=== PATIENT | male | born 1960 | race Two or more races ===

== ENCOUNTER 2017-10-18 19:08 | Inpatient (IN) | payer MEDICARE, MEDICAID ==
[~2017-10-18] VITALS: Ht 175.3 cm; Wt 71.1 kg
[2017-10-18 19:57] LABS: ALBUMIN 4.7 g/dL (3.4-5.0); ANION GAP 12 mmol/L (5-15); CALCIUM 9.2 mg/dL (8.5-10.1); CHLORIDE 97 mmol/L (98-107)
[2017-10-18 19:58] LABS: MD YES; MEAN CORPUSCULAR HEMOGLOBIN 35.7 pg (27.5-34.5); MEAN CORPUSCULAR HGB CONC 34.9 g/dL (33.2-36.2); MEAN CORPUSCULAR VOLUME 102.2 fL (81-97); PLATELET COUNT 198 x10^3/uL (130-400); RED BLOOD COUNT 3.96 x10^6/uL (4.38-5.82); RED CELL DISTRIBUTION WIDTH 13.5 % (9.4-14.8)
[2017-10-18 19:59] LABS: INTERNATIONAL NORMALIZED RATIO 1.03 (0.93-1.1); PROTHROMBIN TIME 10.7 Seconds (9.6-11.5)
[2017-10-18 20:05] LABS: ALANINE AMINOTRANSFERASE 36 U/L (12-78); ALKALINE PHOSPHATASE 97 U/L (45-117); BILIRUBIN,TOTAL 0.6 mg/dL (0.2-1.0); CREATININE 1.94 mg/dL (0.7-1.3); TOTAL PROTEIN 8.7 g/dL (6.4-8.2); TROPONIN I 0.024 ng/mL (0.000-0.045)
[2017-10-18 20:17] LABS: BASOS#(MANUAL) 0.05 x10^3/uL (0-0.1); BASOS% (MANUAL) 1 % (0-1); EOS#(MANUAL) 0.05 x10^3/uL (0.0-0.4); EOS% (MANUAL) 1 % (1-7); LYMPHS% (MANUAL) 47 % (22-44); MONOS#(MANUAL) 0.36 x10^3/uL (0.3-2.7); MONOS% (MANUAL) 7 % (2-9); SEG#(MANUAL) 2.24 x10^3/uL (1.8-6.8); SEGS% (MANUAL) 44 % (42-75)
[2017-10-18 20:19] LABS: <PLATELET ESTIMATE> ADEQUATE; <PLT MORPHOLOGY> NORMAL PLT MORPH
[2017-10-18] MEDS ORDERED: METOCLOPRAMIDE 5 MG/ML, 2ML ONE (20:55)
[2017-10-18 20:58] LABS: MICROSCOPIC AUTO
[2017-10-18 20:59] LABS: CULTURE INDICATED? NO
[2017-10-18] MEDS ORDERED: METOCLOPRAMIDE 5 MG/ML, 2ML IVPush ONE (21:00)
[2017-10-18] MEDS ORDERED: DIPHENHYDRAMINE 50 MG/ML, 1ML IVPush ONE (21:00)
[2017-10-18] MEDS ORDERED: SODIUM CHLORIDE 0.9% 1,000ML IVBOLUS ONE (21:00)
[2017-10-18] MEDS ORDERED: ALBU5SOL6 INH (21:32)
[2017-10-18 21:57] VITALS: BP 131/88
[2017-10-18] MEDS ORDERED: OXYcodone IR 5MG TABLET PO PRN (22:30)
[2017-10-18] MEDS ORDERED: LABETALOL 5MG/ML, 20ML IVPush PRN (22:30)
[2017-10-18] MEDS ORDERED: ACETAMINOPHEN 325 MG TABLET PO PRN (22:30)
[2017-10-18] MEDS ORDERED: BISACODYL 10 MG SUPP PR PRN (22:30)
[2017-10-18] MEDS: ALBUTEROL/IPRATROPIUM 2.5MG/0.5MG, 3 ML NPPB SCH (22:30)
[2017-10-18] MEDS ORDERED: DOCUSATE 100 MG CAPSULE PO PRN (22:30)
[2017-10-18] MEDS ORDERED: POLYETHYLENE GLYCOL 17 GM PACKET PO PRN (22:30)
[2017-10-18] MEDS ORDERED: hydrALAzine 20 MG/ML, 1ML IVPush PRN (22:30)
[2017-10-18] MEDS ORDERED: morphine SULFATE 10 MG/ML, 1ML IVPush PRN (22:30)
[2017-10-18] MEDS ORDERED: ONDANSETRON 2MG/ML, 2ML IVPush PRN (22:30)
[2017-10-18] MEDS: D5%-0.9% NACL+KCL 20MEQ 1,000 ML IV SCH (23:00)
[2017-10-18] MEDS: HEPARIN 5,000 UNITS/ML, 1ML SQ SCH (23:00)
[2017-10-18 23:07] LABS: TOTAL IRON BINDING CAPACITY 368 mcg/dL (250-450)
[2017-10-18 23:13] LABS: HEMOGLOBIN A1C 5.5 % (4.2-6.3)
[2017-10-18 23:31] LABS: % IRON SATURATION 34 % (20-55); C-REACTIVE PROTEIN, QUANT < 0.02 mg/dL (0.02-0.49); IRON LEVEL 126 mcg/dL (65-175)
[2017-10-18 23:33] LABS: FREE T4 (FREE THYROXINE) 1.05 ng/dL (0.76-1.46); PSA SCREEN 3.32 ng/mL (0.00-4.00); TRANSFERRIN 326 mg/dL (200-360)
[2017-10-19 00:31] LABS: CHOLESTEROL, TOTAL 238 mg/dL (140-239)
[2017-10-19 00:44] LABS: CHOL/HDL RATIO 1.5; HDL CHOL % 69 % (26-37); HDL CHOLESTEROL (DIRECT) 164 mg/dL (40-60); LDL CHOLESTEROL,CALCULATED 58 mg/dL (54-169); LDL/HDL RATIO 0.4 (0.5-3.0); TRIGLYCERIDES 80 mg/dL (50-200); VLDL CHOLESTEROL 16 mg/dL (0-25)
[2017-10-19 01:55] VITALS: BP 112/75
[2017-10-19 05:10] LABS: HCT (SEDRATE) 33.3 % (39.2-51.8); MEAN CORPUSCULAR HEMOGLOBIN 35.5 pg (27.5-34.5); MEAN CORPUSCULAR HGB CONC 34.8 g/dL (33.2-36.2); MEAN CORPUSCULAR VOLUME 102.1 fL (81-97); MEAN PLATELET VOLUME 7.6 fL (7.4-10.4); PLATELET COUNT 170 x10^3/uL (130-400); RED BLOOD COUNT 3.26 x10^6/uL (4.38-5.82); RED CELL DISTRIBUTION WIDTH 13.6 % (9.4-14.8)
[2017-10-19 05:30] LABS: MD YES
[2017-10-19 05:33] LABS: EOS#(MANUAL) 0.08 x10^3/uL (0.0-0.4); EOS% (MANUAL) 2 % (1-7); LYMPH#(MANUAL) 2.17 x10^3/uL (1-3.4); LYMPHS% (MANUAL) 53 % (22-44); MONOS#(MANUAL) 0.21 x10^3/uL (0.3-2.7); MONOS% (MANUAL) 5 % (2-9); SEG#(MANUAL) 1.64 x10^3/uL (1.8-6.8); SEGS% (MANUAL) 40 % (42-75)
[2017-10-19 05:34] LABS: <PLATELET ESTIMATE> ADEQUATE; <PLT MORPHOLOGY> NORMAL PLT MORPH; ANISOCYTOSIS 1+; OVALOCYTES 1+
[2017-10-19] MEDS: ALBUTEROL/IPRATROPIUM 2.5MG/0.5MG, 3 ML NPPB SCH ×5 (06:00→19:30)
[2017-10-19 07:36] VITALS: BP 131/78
[2017-10-19 07:41] LABS: ALANINE AMINOTRANSFERASE 29 U/L (12-78); ALBUMIN 3.6 g/dL (3.4-5.0); ANION GAP 8 mmol/L (5-15); CALCIUM 8.2 mg/dL (8.5-10.1); CHLORIDE 108 mmol/L (98-107); CREATININE 1.46 mg/dL (0.7-1.3)
[2017-10-19 07:43] LABS: ALKALINE PHOSPHATASE 76 U/L (45-117); BILIRUBIN,TOTAL 0.6 mg/dL (0.2-1.0)
[2017-10-19] MEDS: D5%-0.9% NACL+KCL 20MEQ 1,000 ML IV SCH ×2 (08:29→19:48)
[2017-10-19] MEDS: HEPARIN 5,000 UNITS/ML, 1ML SQ SCH ×3 (08:30→23:59)
[2017-10-19] MEDS: FLUTICASONE/VILANTEROL 200-25MCG/INH INH SCH (09:57)
[2017-10-19] MEDS: ONDANSETRON ODT 4 MG PO PRN (09:57)
[2017-10-19] MEDS ORDERED: ERGOCALCIFEROL 50,000 UNIT CAPSULE PO SCH (11:30)
[2017-10-19] MEDS: methylPREDNISolone SOD SUCC 40 MG/ML IV SCH ×2 (12:04→18:50)
[2017-10-19 13:56] VITALS: BP 136/69
[2017-10-19] MEDS ORDERED: LORazepam 1MG TABLET PO PRN ×4 (16:30)
[2017-10-19] MEDS ORDERED: LORazepam 2 MG/ML, 1ML IV PRN ×5 (16:30)
[2017-10-19] MEDS ORDERED: LORazepam 0.5MG TABLET PO PRN (16:30)
[2017-10-19 19:37] VITALS: BP 124/73
[2017-10-20 01:30] VITALS: BP 125/79
[2017-10-20 05:05] LABS: MEAN CORPUSCULAR HGB CONC 34.2 g/dL (33.2-36.2); MEAN CORPUSCULAR VOLUME 102.4 fL (81-97); MEAN PLATELET VOLUME 8.1 fL (7.4-10.4); PLATELET COUNT 169 x10^3/uL (130-400); RED BLOOD COUNT 3.42 x10^6/uL (4.38-5.82); RED CELL DISTRIBUTION WIDTH 13.1 % (9.4-14.8)
[2017-10-20 05:10] LABS: ALBUMIN 3.8 g/dL (3.4-5.0); CALCIUM 9.1 mg/dL (8.5-10.1); CHLORIDE 106 mmol/L (98-107)
[2017-10-20 05:14] LABS: ANION GAP 7 mmol/L (5-15)
[2017-10-20 05:15] LABS: ALANINE AMINOTRANSFERASE 27 U/L (12-78); ALKALINE PHOSPHATASE 75 U/L (45-117); BILIRUBIN,TOTAL 0.7 mg/dL (0.2-1.0); TOTAL PROTEIN 7.6 g/dL (6.4-8.2)
[2017-10-20] MEDS: methylPREDNISolone SOD SUCC 40 MG/ML IV SCH ×4 (05:23→17:41)
[2017-10-20] MEDS: D5%-0.9% NACL+KCL 20MEQ 1,000 ML IV SCH ×2 (05:25→18:07)
[2017-10-20 05:42] LABS: MD YES
[2017-10-20 05:44] LABS: LYMPH#(MANUAL) 0.33 x10^3/uL (1-3.4); LYMPHS% (MANUAL) 6 % (22-44); MONOS#(MANUAL) 0.06 x10^3/uL (0.3-2.7); MONOS% (MANUAL) 1 % (2-9); SEG#(MANUAL) 5.12 x10^3/uL (1.8-6.8); SEGS% (MANUAL) 93 % (42-75)
[2017-10-20 05:45] LABS: <PLATELET ESTIMATE> ADEQUATE; <PLT MORPHOLOGY> NORMAL PLT MORPH
[2017-10-20] MEDS: ALBUTEROL/IPRATROPIUM 2.5MG/0.5MG, 3 ML NPPB SCH ×4 (06:30→19:51)
[2017-10-20 08:00] VITALS: BP 132/77
[2017-10-20 08:17] LABS: OCCULT BLOOD NEGATIVE (NEGATIVE)
[2017-10-20 09:03] LABS: CRYPTOSPORIDIUM ANTIGEN Negative (Negative)
[2017-10-20] MEDS: FLUTICASONE/VILANTEROL 200-25MCG/INH INH SCH (09:10)
[2017-10-20] MEDS: HEPARIN 5,000 UNITS/ML, 1ML SQ SCH ×2 (09:10→17:41)
[2017-10-20 09:12] LABS: STOOL FOR LEUKOCYTES NONE SEEN (NEGATIVE)
[2017-10-20 12:45] VITALS: BP 154/84
[2017-10-20] MEDS ORDERED: LORazepam 2 MG/ML, 1ML ONE (13:31)
[2017-10-20] MEDS: ONDANSETRON ODT 4 MG PO PRN ×2 (13:33→17:41)
[2017-10-20] MEDS: LORazepam 2 MG/ML, 1ML IVPush PRN ×2 (13:34→19:20)
[2017-10-20 18:55] VITALS: BP 148/88
[2017-10-20] MEDS: PROMETHAZINE 25 MG/ML, 1ML IM PRN (19:25)
[2017-10-21] MEDS: HEPARIN 5,000 UNITS/ML, 1ML SQ SCH ×3 (00:28→08:32)
[2017-10-21] MEDS: methylPREDNISolone SOD SUCC 40 MG/ML IV SCH ×3 (00:28→12:46)
[2017-10-21 01:26] VITALS: BP 150/86
[2017-10-21] MEDS: D5%-0.9% NACL+KCL 20MEQ 1,000 ML IV SCH ×2 (01:35→08:32)
[2017-10-21] MEDS: PROMETHAZINE 25 MG/ML, 1ML IM PRN (05:14)
[2017-10-21] MEDS: ALBUTEROL/IPRATROPIUM 2.5MG/0.5MG, 3 ML NPPB SCH ×3 (06:55→14:15)
[2017-10-21] MEDS: FLUTICASONE/VILANTEROL 200-25MCG/INH INH SCH (08:32)
[2017-10-21 08:41] VITALS: BP 152/89
[2017-10-21] MEDS: ONDANSETRON ODT 4 MG PO PRN (12:46)
[2017-10-21 13:41] VITALS: BP 146/79
[2017-10-21] MEDS ORDERED: DOCU-131 PO (14:35)
[2017-10-21] MEDS ORDERED: IPRA3AMP30 NPPB (14:35)
[2017-10-21] MEDS ORDERED: FLUT1BLS INH (14:35)
[2017-10-21] MEDS ORDERED: PRED5TAB PO (14:35)
[2017-10-21] MEDS ORDERED: ERGO500017 PO (14:35)
[2017-10-21] MEDS ORDERED: ONDA4TAB7 PO (14:35)
[2017-10-21] MEDS ORDERED: CALCIUM CARBONATE 500 MG TAB.CHEW PO PRN (15:00)
== END 2017-10-21 15:52 | disposition home or self-care (01) | DRG 438 ==
LOC: ED 20:43 → EDIP 21:15 → 3NE 21:55
PROVIDERS: ADMIT Internal Medicine; ATTEND Internal Medicine
DX: K85.20 Alcohol induced acute pancreatitis without necrosis or infection (principal); N17.0 Acute kidney failure with tubular necrosis; J44.1 Chronic obstructive pulmonary disease with (acute) exacerbation; R19.7 Diarrhea, unspecified; R63.4 Abnormal weight loss; E86.0 Dehydration; E87.6 Hypokalemia; E55.9 Vitamin D deficiency, unspecified; J44.9 Chronic obstructive pulmonary disease, unspecified; F10.20 Alcohol dependence, uncomplicated; Z68.23 Body mass index [BMI] 23.0-23.9, adult; Z88.0 Allergy status to penicillin
CPT/HCPCS: 36415; 71046; 76700; 80053; 80061; 80307; 81001; 82272; 82306; 82378; 82607; 82728; 83036; 83540; 83550; 83690; 83735; 84439; 84443; 84466; 84484; 85025; 85610; 85651; 85730; 86140; 86301; 86704; 86705; 86706; 86708; 86709; 86803; 87046; 87328; 87329; 87340; 87427; 87521; 87806; 89055; 93005; 94640; 96374; 96375; G0103; G0378; J1644; J2550; J7620; Q0162; G0475; J1200; J2060; J2765; J2920; J3480; J7030

== ENCOUNTER 2017-11-06 20:24 | Emergency (ER) | payer MEDICARE, MEDICAID ==
[~2017-11-06] VITALS: Ht 177.8 cm; Wt 62.1 kg
[~2017-11-06 20:24] MED LIST: ALBU5SOL6 INH; DOCU-131 PO; ERGO500017 PO; FLUT1BLS INH; IPRA3AMP30 NPPB; ONDA4TAB7 PO; PRED5TAB PO
[2017-11-06] MEDS ORDERED: ALBUTEROL SULFATE 2.5 MG/3 ML NPPB ONE (22:00)
[2017-11-06 22:08] LABS: MEAN CORPUSCULAR HEMOGLOBIN 34.6 pg (27.5-34.5); MEAN CORPUSCULAR HGB CONC 33.6 g/dL (33.2-36.2); MEAN CORPUSCULAR VOLUME 102.7 fL (81-97); MEAN PLATELET VOLUME 6.9 fL (7.4-10.4); PLATELET COUNT 241 x10^3/uL (130-400); RED BLOOD COUNT 3.61 x10^6/uL (4.38-5.82)
[2017-11-06 22:09] LABS: MD YES
[2017-11-06 22:14] LABS: ALBUMIN 3.9 g/dL (3.4-5.0); ANION GAP 12 mmol/L (5-15); CALCIUM 8.7 mg/dL (8.5-10.1); CHLORIDE 108 mmol/L (98-107)
[2017-11-06 22:17] LABS: TROPONIN I < 0.015 ng/mL (0.000-0.045)
[2017-11-06 22:20] LABS: BASOS#(MANUAL) 0.04 x10^3/uL (0-0.1); BASOS% (MANUAL) 1 % (0-1); EOS#(MANUAL) 0.13 x10^3/uL (0.0-0.4); EOS% (MANUAL) 3 % (1-7); LYMPH#(MANUAL) 2.49 x10^3/uL (1-3.4); LYMPHS% (MANUAL) 58 % (22-44); MONOS#(MANUAL) 0.22 x10^3/uL (0.3-2.7); MONOS% (MANUAL) 5 % (2-9); SEG#(MANUAL) 1.42 x10^3/uL (1.8-6.8); SEGS% (MANUAL) 33 % (42-75)
[2017-11-06 22:21] LABS: <PLATELET ESTIMATE> ADEQUATE; <PLT MORPHOLOGY> NORMAL PLT MORPH; ANISOCYTOSIS 1+
[2017-11-06 23:01] VITALS: BP 128/68
== END 2017-11-06 23:07 | disposition home or self-care (01) ==
LOC: ED 21:37
DX: J44.1 Chronic obstructive pulmonary disease with (acute) exacerbation (principal); Z87.891 Personal history of nicotine dependence
CPT/HCPCS: 36415; 71046; 80048; 82040; 84484; 85025; 94640; 99285; J7613

== ENCOUNTER 2019-03-09 15:32 | Emergency (ER) | payer MEDICAID, MEDICARE ==
[~2019-03-09] VITALS: Ht 177.8 cm; Wt 67.5 kg
[2019-03-09] MEDS ORDERED: ALBUTEROL/IPRATROPIUM 2.5MG/0.5MG, 3 ML NPPB ONE (16:00)
--- NOTE | 2019-03-09 16:53 | NUR ---
NIL X 1
[2019-03-09 17:23] LABS: BASOPHILS # (AUTO) 0.05 x10^3/uL (0-0.1); BASOPHILS % (AUTO) 1 % (0-1); EOSINOPHILS % (AUTO) 7 % (1-7); LYMPHOCYTES # (AUTO) 1.68 x10^3/uL (1-3.4); LYMPHOCYTES % (AUTO) 31 % (22-44); MD NO; MEAN CORPUSCULAR HEMOGLOBIN 32.7 pg (27.5-34.5); MEAN CORPUSCULAR HGB CONC 32.8 g/dL (33.2-36.2); MEAN CORPUSCULAR VOLUME 99.7 fL (81-97); MEAN PLATELET VOLUME 8.1 fL (7.4-10.4); MONOCYTES # (AUTO) 0.33 x10^3/uL (0.2-0.8); MONOCYTES % (AUTO) 6 % (2-9); NEUTROPHILS % (AUTO) 55 % (42-75); PLATELET COUNT 253 x10^3/uL (130-400); RED CELL DISTRIBUTION WIDTH 13.7 % (9.4-14.8)
[2019-03-09 17:35] LABS: ALBUMIN 4.3 g/dL (3.4-5.0); ANION GAP 7 mmol/L (5-15); CALCIUM 9.9 mg/dL (8.5-10.1); CHLORIDE 108 mmol/L (98-107)
--- NOTE | 2019-03-09 19:38 | NUR ---
Terrence beasley in [facility] - 03/09/19 at 1938 by [email or web address] PT I
[2019-03-09] MEDS ORDERED: ALBUTEROL/IPRATROPIUM 2.5MG/0.5MG, 3 ML ONE ×2 (19:50→19:53)
--- NOTE | 2019-03-09 19:50 | NUR ---
THIS IS A 58Y M THAT COMES IN W/ C/O "MY COPD IS ACTING UP." PT REPORTS FEELING SHORT OF BREATH BUT HAS BEEN COMPLIANT WITH MEDICATIONS AT HOME. PT ABLE TO SPEAK IN FULL SENTENCES O2 SAT 93% RA RR 24. PT CONNECTED TO ALL MONITORING, JOANN SHELTON.
--- NOTE | 2019-03-09 20:00 | NUR ---
RT AT BEDSIDE
[2019-03-09 20:58] VITALS: BP 132/83
== END 2019-03-09 21:39 | disposition home or self-care (01) ==
LOC: ED 21:35
DX: J44.1 Chronic obstructive pulmonary disease with (acute) exacerbation (principal); F17.200 Nicotine dependence, unspecified, uncomplicated
CPT/HCPCS: 36415; 71046; 80048; 82040; 85025; 93005; 94640; 99284; J7512; J7620

== ENCOUNTER 2019-05-12 10:29 | Emergency (ER) | payer MEDICARE, MEDICAID ==
[~2019-05-12] VITALS: Ht 177.8 cm; Wt 66.8 kg
--- NOTE | 2019-05-12 10:37 | NUR ---
EKG IN TRIAGE
--- NOTE | 2019-05-12 12:11 | NUR ---
ELMA DAVENPORT IS DISCHARGING THE PT. FOR THE PRIMARY CARE RN. PT. REMAINS A & O X 4 WITH A GCS OF 15. RESP EUPNEIC WITH SATS 96% ON ROOM AIR. PT. WAS GIVEN DISCHARGE INSTRUCTIONS AND SCRIPTS WITH UNDERSTANDING VERBALZIED ALONG WITH WILLINGNESS TO COMPLY. PT. WAS AMBULATORY TO THE DISCHARGE AREA IN RESP TRIAGE. STEADY GAIT.
[2019-05-12 12:16] VITALS: BP 132/83
== END 2019-05-12 12:18 | disposition home or self-care (01) ==
LOC: ED 10:52
DX: J44.1 Chronic obstructive pulmonary disease with (acute) exacerbation (principal); B34.9 Viral infection, unspecified
CPT/HCPCS: 71045; 93005; 99283; J7512

== ENCOUNTER 2019-07-24 09:35 | Emergency (ER) | payer OTHER, MEDICAID ==
[~2019-07-24] VITALS: Ht 177.8 cm; Wt 70.0 kg
--- NOTE | 2019-07-24 09:47 | NUR ---
BIB BY JOSE FROM HOME FRO INCREASING SOB/COUGHING UP BROWN PHLEGM SINCE WEDNESDAY HX OF SAME "COPD ACTS UP EVERY YEAR A FEW TIMES" DENIES FEVER/MUSCLE ACHES ROOM AIR SAT 96 MINIMAL WOB LUNGS SOUNDS QUIET/DEMINISHED TO BASES
[2019-07-24] MEDS ORDERED: methylPREDNISolone SOD SUCC 125 MG/2 ML IV ONE (10:00)
[2019-07-24] MEDS ORDERED: SODIUM CHLORIDE FLUSH 10ML SYR IVF ONE (10:00)
[2019-07-24] MEDS ORDERED: methylPREDNISolone SOD SUCC 125 MG/2 ML ONE (10:11)
--- NOTE | 2019-07-24 10:21 | NUR ---
MEDICATED PER EMAR PATIENT ASKING FOR NEB TX. "JUST TO TUNE ME UP BEFORE I GO. MY BREATHING IS THE SAME." NO INCRESED WOB, POX 97%-PROVIDER MADE AWARE
[2019-07-24 10:37] LABS: ALANINE AMINOTRANSFERASE 19 U/L (12-78); ALBUMIN 3.9 g/dL (3.4-5.0); ANION GAP 15 mmol/L (5-15); CALCIUM 9.7 mg/dL (8.5-10.1); CHLORIDE 100 mmol/L (98-107); CREATININE 1.39 mg/dL (0.7-1.3)
[2019-07-24 10:41] LABS: ALKALINE PHOSPHATASE 137 U/L (45-117); BILIRUBIN,TOTAL 0.5 mg/dL (0.2-1.0); TOTAL PROTEIN 7.8 g/dL (6.4-8.2); TROPONIN I 0.059 ng/mL (0.000-0.045)
[2019-07-24 10:43] LABS: MEAN CORPUSCULAR HEMOGLOBIN 32.2 pg (27.5-34.5); MEAN CORPUSCULAR HGB CONC 33.1 g/dL (33.2-36.2); MEAN CORPUSCULAR VOLUME 97.2 fL (81-97); MEAN PLATELET VOLUME 8.1 fL (7.4-10.4); PLATELET COUNT 234 x10^3/uL (130-400); RED BLOOD COUNT 3.88 x10^6/uL (4.38-5.82); RED CELL DISTRIBUTION WIDTH 14.9 % (9.4-14.8)
[2019-07-24 10:44] LABS: MD YES
[2019-07-24] MEDS ORDERED: ALBUTEROL/IPRATROPIUM 2.5MG/0.5MG, 3 ML NPPB SCH (11:00)
[2019-07-24 11:02] LABS: EOS#(MANUAL) 0.31 x10^3/uL (0.0-0.4); EOS% (MANUAL) 9 % (1-7); LYMPH#(MANUAL) 1.12 x10^3/uL (1-3.4); LYMPHS% (MANUAL) 33 % (22-44); MONOS#(MANUAL) 0.34 x10^3/uL (0.3-2.7); MONOS% (MANUAL) 10 % (2-9); SEG#(MANUAL) 1.63 x10^3/uL (1.8-6.8); SEGS% (MANUAL) 48 % (42-75)
[2019-07-24 11:03] LABS: <PLATELET ESTIMATE> ADEQUATE; <PLT MORPHOLOGY> NORMAL PLT MORPH; <RBC MORPHOLOGY> NORMAL
[2019-07-24] MEDS ORDERED: ALBUTEROL/IPRATROPIUM 2.5MG/0.5MG, 3 ML ONE (11:03)
--- NOTE | 2019-07-24 11:07 | NUR ---
MEDICATED PER EMAR WITH BREATHING TX VSS ON NIBP/POX
--- NOTE | 2019-07-24 11:40 | NUR ---
WITH REASSESSMENT - PATIENT REPORTS "I FEEL MUCH BETTER. WHEN CAN I GO HOME." VSS ON NIBP/POX. PLACED UP FOR RECHECK ALL TESTING RESULTED PROVIDED WITH PO FLUIDS/SOLIDS AND UPDATED ON ESTIMATED POC
[2019-07-24 13:26] VITALS: BP 127/71
== END 2019-07-24 13:28 | disposition home or self-care (01) ==
LOC: ED 10:27
DX: J44.1 Chronic obstructive pulmonary disease with (acute) exacerbation (principal); R94.31 Abnormal electrocardiogram [ECG] [EKG]; F17.200 Nicotine dependence, unspecified, uncomplicated
CPT/HCPCS: 36415; 71045; 80053; 83605; 84484; 85025; 93005; 94640; 96374; 99283; J2930

== ENCOUNTER 2020-08-10 12:06 | Emergency (ER) | payer OTHER ==
[~2020-08-10] VITALS: Ht 177.8 cm; Wt 62.0 kg
[~2020-08-10 12:06] MED LIST changes: +COMBIVENT INH; +FLUT1DIS5 IH; +FOLI1TAB32 PO; +MULT-449 PO; +POTA-143 PO; +THIA100T67 PO
[2020-08-10] MEDS ORDERED: FAMOTIDINE 20 MG TABLET ONE (14:56)
[2020-08-10] MEDS ORDERED: FAMOTIDINE 20 MG TABLET PO ONE (15:00)
--- NOTE | 2020-08-10 15:43 | NUR ---
PT REC'VD DISCHARGE INSTRUCTIONS AND EDUCATION. PT HAD NO FURTHER QUESTIONS. PT AMBULATED TO DC AREA, STEADY GAIT.
[2020-08-10 15:44] VITALS: BP 155/87
== END 2020-08-10 15:47 | disposition home or self-care (01) ==
LOC: ED 15:45
DX: L23.2 Allergic contact dermatitis due to cosmetics (principal); L24.3 Irritant contact dermatitis due to cosmetics; J44.9 Chronic obstructive pulmonary disease, unspecified
CPT/HCPCS: 99283; J7512; Q0177; 82962

== ENCOUNTER 2020-09-03 19:37 | Emergency (ER) | payer OTHER ==
[~2020-09-03] VITALS: Ht 175.3 cm; Wt 62.4 kg
[~2020-09-03 19:37] MED LIST changes: -ALBU5SOL6 INH; +DOCU50LI23 INH; -POTA-143 PO; +POTA20TA6 PO
[2020-09-03 19:44] VITALS: BP 123/81
--- NOTE | 2020-09-03 20:19 | NUR ---
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
== END 2020-09-03 20:21 | disposition home or self-care (01) ==
LOC: ED 20:00
DX: L50.9 Urticaria, unspecified (principal); R21 Rash and other nonspecific skin eruption; J44.9 Chronic obstructive pulmonary disease, unspecified; F17.200 Nicotine dependence, unspecified, uncomplicated
CPT/HCPCS: 99281; 99282

== ENCOUNTER 2020-09-08 04:03 | Emergency (ER) | payer OTHER ==
[~2020-09-08] VITALS: Ht 177.8 cm; Wt 62.3 kg
[2020-09-08 04:12] VITALS: BP 152/89
== END 2020-09-08 05:57 | disposition home or self-care (01) ==
LOC: ED 05:20
DX: J03.90 Acute tonsillitis, unspecified (principal); F17.200 Nicotine dependence, unspecified, uncomplicated; J44.9 Chronic obstructive pulmonary disease, unspecified
CPT/HCPCS: 99281

== ENCOUNTER 2020-10-31 04:30 | Emergency (ER) | payer OTHER ==
[~2020-10-31] VITALS: Ht 177.8 cm; Wt 67.0 kg
[2020-10-31 11:21] VITALS: BP 113/70
== END 2020-10-31 11:24 | disposition home or self-care (01) ==
LOC: ED 09:15
DX: L30.9 Dermatitis, unspecified (principal); M79.662 Pain in left lower leg; M79.661 Pain in right lower leg; J44.9 Chronic obstructive pulmonary disease, unspecified; Z88.0 Allergy status to penicillin; Z23 Encounter for immunization
CPT/HCPCS: 0011A; 36415; 80053; 83880; 85025; 91301; 93970; 99284